=== PATIENT | female | born 1970 | race Caucasian/White ===

== ENCOUNTER 2019-12-20 07:52 | Day surgery (SDC) | payer SELFPAY ==
[2019-12-19 15:51] VITALS: BMI 25.8
--- NOTE | 2019-12-20 08:24 | ANES.PREANE2 ---
Pre-Anesthetic Assessment Pre-Anesthetic Assessment: Height/Weight: Height 1.68 m Weight 72.575 kg Preop Diagnosis: Anemia, occult blood in stool Proposed Procedure: Operation Date: 12/20/19 10:00 Proposed Procedures p EGD/COLON 62064 40960 R19.5(Not Applicable) - Lucho Dc MD s Colonoscopy(Not Applicable) - Lucho Dc MD Last Intake: 03:00 Exam: Pre-Anes Outpt Exam: alert, oriented x 3, clear to auscultation bilaterally and regular rate & rhythm Airway: Submandibular: WNL Cervical ROM: WNL MP: 1 Dentition: Caps Additional comments: left top front, multiple crowned molars CV/HEM: CV/HEM: HTN Comments: rx'd x 2y w blocks/2FOS without angina/DONALD : : UTI Metabolic: Metabolic: DM (rx'd x 10y normally 6-300) Anesthetic Plan: ASA status: 3 Anesthesia: MAC PFSH Anesthesia PFSH: Medical History (Updated 11/22/19 @ 16:55 by Lucho Dc MD) Anemia (Resolved) Depression (Acute) Diabetes (Acute) Herpes genitalia (Acute) Hypertension (Acute) Occult blood in stools (Acute) Surgical History H/O wisdom tooth extraction (Acute) Social History Smoking and tobacco status: never smoked Alcohol intake: never Lives independently: Yes Household members: spouse Marital status: Current occupational status: employed History of recent travel: No Data Anesthesia Cardiac Studies: No Data to Display
[2019-12-20] MEDS: sodium chloride 0.9% 1,000 ML 30 ML (08:50)
[2019-12-20 09:15] LABS: Glucose Point of Care 149 mg/dL (70-110)
[2019-12-20 09:24] VITALS: BP 138/80; PULSE 94; RESP 20; TEMP 37.2; O2SAT 100
[2019-12-20 10:20] VITALS: BP 122/76; PULSE 83; RESP 16; TEMP 36.5; O2SAT 98
[2019-12-20 10:32] VITALS: BP 137/78; PULSE 79; RESP 18; O2SAT 100
--- NOTE | 2019-12-28 14:00 | W.PM.OPSUD ---
Surgery/Procedure H&P Update DATE OF PROCEDURE: December 20, 2019 DATE H&P PERFORMED: 11/22/19 H&P UPDATE INFORMATION: I have reviewed H&P completed within last 30 days, I have examined patient prior to procedure and No changes to prior documentation PREOP DIAGNOSIS: Anemia PLANNED PROCEDURE: Operation Date: 12/20/19 10:00 Proposed Procedures p EGD/COLON 53377 34254 R19.5(Not Applicable) - Lucho Dc MD s Colonoscopy(Not Applicable) - Lucho Dc MD
== END 2019-12-20 10:50 | disposition home or self-care (01) ==
PROVIDERS: Family Provider Family Medicine; PCP Nurse Practitioner Family; Visit Provider Surgery
PROC: 0DJ08ZZ Inspection of Upper Intestinal Tract, Via Natural or Artificial Opening Endoscopic (ICD-10-PCS; CPT 43235; principal; 2019-12-20 10:00)
PROC: 0DJD8ZZ Inspection of Lower Intestinal Tract, Via Natural or Artificial Opening Endoscopic (ICD-10-PCS; CPT 45378; 2019-12-20 10:00)
DX: D50.9 Iron deficiency anemia, unspecified (principal); R19.4 Change in bowel habit; Z80.0 Family history of malignant neoplasm of digestive organs; Z79.4 Long term (current) use of insulin; F32.9 Major depressive disorder, single episode, unspecified; I10 Essential (primary) hypertension; Z82.49 Family history of ischemic heart disease and other diseases of the circulatory system; D12.5 Benign neoplasm of sigmoid colon; K64.8 Other hemorrhoids; E11.9 Type 2 diabetes mellitus without complications
CPT/HCPCS: 12345; 36416; 43235; 45380; 82962; 88305; J2704; J7030

== ENCOUNTER 2021-02-21 09:55 | Outpatient (CLI) | payer BC, SELFPAY ==
--- NOTE | 2021-02-21 10:01 | MM_ITS ---
WS: [id number] BILATERAL DIGITAL SCREENING MAMMOGRAPHY WITH CAD CLINICAL INFORMATION: SCREENING HISTORY: Screening mammogram. No current complaints. COMPARISON: TECHNIQUE: Bilateral CC and MLO views. FINDINGS: The breasts are composed of heterogeneous fibroglandular density tissue, which can limit the detectio n of small underlying mass lesions. No suspicious mass, asymmetry, calcifications, or architectural d istortion. No evidence of malignancy. Punctate and lucent centered calcifications. MM/[id number] IMPRESSION: BI-RADS: 2-Benign FOLLOW UP: 1 Year Follow-up Recommend return to annual screening mammography.
== END 2021-02-21 09:56 | disposition home or self-care (01) ==
LOC: RADSHAW 09:59
PROVIDERS: Family Provider Family Medicine; PCP Internal Medicine; Visit Provider Internal Medicine
DX: Z12.31 Encounter for screening mammogram for malignant neoplasm of breast (principal)
CPT/HCPCS: 77067

== ENCOUNTER 2022-02-24 09:57 | Outpatient (CLI) | payer BC, SELFPAY ==
--- NOTE | 2022-02-24 10:05 | MM_ITS ---
WS: [id number] VIEWS: MLO and CC views both breasts. 3D digital tomosynthesis is also included in this exam. Comparison made with prior exam of 02/21/2021 and 05/26/2018. Findings: There was no sign of mass, architectural distortion or suspicious calcification in either breast. He terogeneously dense MM/[place] [id number] Impression: BI-RADS: 2-Benign FOLLOW-UP: 1 Year Follow-up This mammogram was also analyzed by the Computer Aided Detection System R2 Imag e Summer School Coordinator.
== END 2022-02-24 09:58 | disposition home or self-care (01) ==
LOC: RAD 09:59
PROVIDERS: Family Provider Family Medicine; PCP Internal Medicine; Visit Provider Family Medicine
DX: Z12.31 Encounter for screening mammogram for malignant neoplasm of breast (principal)
CPT/HCPCS: 77063; 77067

== ENCOUNTER 2022-02-24 09:58 | Outpatient (CLI) | payer BC, SELFPAY ==
--- NOTE | 2022-02-24 10:57 | US_ITS ---
WS: [id number] TRANSABDOMINAL PELVIC AND TRANSVAGINAL PELVIC ULTRASOUND HISTORY: MENORRHAGIA COMPARISON: 12/04/2015 Uterus: 10.2 cm x 6.5 cm x 5.4 cm. Enlarged anteverted heterogeneous uterus. Multiple fibroids are id entified. The largest in the anterior myometrium towards the fundus with increased vascularity. This fibroid measures 1.7 x 1.7 x 2.1 cm. Fibroids are better visualized on transabdominal imaging due to uterine enlargement. Endometrium: 0.6 cm. No displacement of the endometrium by the fibroids. Right ovary: 3.1 cm x 3.1 cm x 1.8 cm. The RIGHT ovary is adjacent to the superior uterine fundus and does contain a follicle. Follicle measures 2.1 x 2.3 x 2.4 cm. Left ovary: 4.0 cm x 3.3 cm x 2.2 cm. The ovary is difficult to visualize. There is an ovary towards the cul-de-sac which I believe is the LEFT ovary. Similar appearance and location to the prior examin ation. No free fluid. US/US pelvic with transvaginal IMPRESSION: 1. Enlarged fibroid uterus. Largest fibroid measures 1.7 x 1.7 x 2.1 cm. 2. Endometrium appears normal. No distortion by the fibroids. 3. LEFT ovary difficult to visualize but appears deep within the cul-de-sac.
== END 2022-02-24 09:59 | disposition home or self-care (01) ==
LOC: RAD 09:59
PROVIDERS: Family Provider Family Medicine; PCP Internal Medicine; Visit Provider Family Medicine
DX: N92.0 Excessive and frequent menstruation with regular cycle (principal); D25.9 Leiomyoma of uterus, unspecified
CPT/HCPCS: 76830; 76856

== ENCOUNTER → 2022-03-31 09:24 | Outpatient (BNVA) | payer BC, SELFPAY | PROVIDERS: Family Provider Family Medicine; PCP Internal Medicine; Visit Provider Obstetrics & Gynecology | DX: D64.9 Anemia, unspecified (principal); R10.2 Pelvic and perineal pain; G89.29 Other chronic pain; N92.0 Excessive and frequent menstruation with regular cycle | CPT/HCPCS: 80053; 81000; 81025; 85027; 86850; 86900 ==

== ENCOUNTER 2022-04-02 12:19 | Observation (INO) | payer BC, SELFPAY ==
[2022-04-01 10:46] VITALS: BMI 24.1
--- NOTE | 2022-04-01 11:03 | ANES.PREANE2 ---
Pre-Anesthetic Assessment Height/Weight: Height 1.65 m Weight 65.771 kg Preop Diagnosis: Anemia Operation Date: 04/02/22 07:40 Proposed Procedures p Total vaginal hysterectomy bilateral salpingo-oophorectomy 07100/R10.2/N92.0/D64.9(Not Applicable) - Grupo Canales MD s Salpingo-Oophorectomy (Vaginal)(Bilateral) - Grupo Canales MD Familial anesthetic complications: None Social No alcohol and No tobacco Exam alert, oriented x 3, clear to auscultation bilaterally and regular rate & rhythm Airway Mallampati: Class I Dentition: full Pulmonary None reported CV/HEM Hypertension None reported Hepatic None reported GI None reported Metabolic Diabetes Mellitus [facility] [place] None reported Neuropsych None reported Anesthetic Plan ASA status: 3 Anesthesia: General Risk of > 500 ml blood loss (7ml/kg in children): No Medications/Allergies Home Medications Medication Instructions Recorded Confirmed Last Taken Type acyclovir 200 mg capsule 200 mg PO BID PRN cap 11/22/19 04/01/22 12/19/19 History cyclobenzaprine 10 mg tablet 10 mg PO TID PRN 11/22/19 04/01/22 12/19/19 History losartan 25 mg tablet 50 mg PO DAILY tab 11/22/19 04/01/22 12/19/19 History diphenhydramine 25 2 tab PO BEDTIME 12/20/19 04/01/22 12/19/19 History mg-acetaminophen 500 mg tablet (Tylenol PM Extra Strength) fluoxetine 40 mg capsule 40 mg PO DAILY 12/20/19 04/01/22 12/18/19 History insulin glargine 100 unit/mL 18 unit SUBCUT DAILY 12/20/19 04/01/22 12/20/19 06:15 History subcutaneous solution (Lantus 9 UNITS U-100 Insulin) metformin 1,000 mg tablet 1,000 mg PO BID 12/20/19 04/01/22 12/19/19 19:00 History dulaglutide 3 mg/0.5 mL mg SUBCUT 03/31/22 03/31/22 Unknown History subcutaneous pen injector (Trulicity) Allergies Allergy/AdvReac Type Severity Reaction Status Date / Time Sulfa (Sulfonamide Allergy ALGY-Redness Verified 03/31/22 08:18 Antibiotics) of Skin [facility] Anesthesia Medical History Anemia Depression Diabetes Herpes genitalia Hypertension Occult blood in stools Surgical History H/O esophagogastroduodenoscopy 12/20/2019: Normal H/O wisdom tooth extraction History of colonoscopy with polypectomy 12/20/2019: Found with a sessile polyp sigmoid colon, internal hemorrhoids, follow-up colonoscopy in 5 years Family History Mother Anemia Heart disease Hyperlipidemia Hypertension Colon cancer, Onset Age: 66 Sister Anemia Father CAD (coronary artery disease) Heart disease Grandmother Diabetes paternal Family/Other Diabetes maternal aunt Denies family history of Ovarian cancer Clotting disorder Breast cancer Anesthesia complication Bleeding disorder Uterine cancer Thyroid condition Stroke Social History Smoking and tobacco status: never smoked Alcohol intake: never Lives independently: Yes Household members: spouse Marital status: Current occupational status: employed History of recent travel: No Female Reproductive History Date of last menstrual period: 03/18/22 Data Anesthesia Cardiac Studies: No Data to Display
[2022-04-02] VITALS (20 sets, daily range): BP systolic 110–160; BP diastolic 75–105; PULSE 84–100; RESP 11–20; TEMP 36.4–36.9; O2SAT 94–100; BMI 24.1
[2022-04-02 07:13] LABS: OR HCG Qualitative Urine Negative (Negative)
--- NOTE | 2022-04-02 07:20 | ECG_ITS ---
[facility] Test Date: 2022-04-02 Pat Name: Brunilda Waters Department: Room: 258 Gender: Female Medical Research Scientist: : 1970 Requested By: Hola Christianson Order Number: [id number] Ramsey MD: Anamaria Omer M.D. Measurements Intervals [place] Rate: 88 P: 62 OH: 136 QRS: 22 QRSD: 79 T: 60 QT: 365 QTc: 443 Interpretive Statements SINUS RHYTHM No previous ECG available for comparison Electronically Signed On 04-02-2022 21:56:13 CDT by Anamaria Omer M.D. [email or web address]
[2022-04-02 07:28] LABS: Glucose Point of Care 225 mg/dL (70-110)
--- NOTE | 2022-04-02 07:33 | P.ANESUD_ITS ---
Pre-Anesthetic Update Pre-Anesthetic Assessment: Date of Surgery/Procedure: 04/02/22 Preop Kia gnosis: Pelvic pain, uterine fibroid, menorrhagia, dysmenorrhea Proposed Procedure: Operation Date: 04/02/22 08:15 Proposed Procedures p Total vaginal hysterectomy bilateral salpingo-oophorectomy 69309/R10.2/N92.0/D64.9(Not Applicable) - Grupo Canales MD s Salpingo-Oophorectomy (Vaginal)(Bilateral) - Grupo Canales MD Any changes to Pre-Anesthetic Assessment?: No Exam: Pre-Anes Outpt Exam: alert, oriented x 3, clear to auscultation bilaterally and regular rate & rhythm Cardiac Studies: No Data to Display
[2022-04-02] MEDS: scopolamine 1.5 Patch 1 PATCH TRANSDERMA (07:46)
[2022-04-02] MEDS: sodium chloride 0.9% 1,000 ML 30 ML IV (07:47)
--- NOTE | 2022-04-02 08:00 | W.PM.OPSUD ---
Surgery/Procedure H&P Update DATE OF PROCEDURE: April 02, 2022 DATE H&P PERFORMED: 03/31/22 H&P UPDATE INFORMATION: I have reviewed H&P completed within last 30 days, I have examined patient prior to procedure and No changes to prior documentation PREOP DIAGNOSIS: Pelvic pain, uterine fibroid, menorrhagia, dysmenorrhea PLANNED PROCEDURE: Operation Date: 04/02/22 08:15 Proposed Procedures p Total vaginal hysterectomy bilateral salpingo-oophorectomy 86840/R10.2/N92.0/D64.9(Not Applicable) - Grupo Canales MD s Salpingo-Oophorectomy (Vaginal)(Bilateral) - Grupo Canales MD
[2022-04-02] MEDS: ceFOXitin 2,000 MG in sodium chloride 0.9% (plus) 50 ML 100 MG IV (08:04)
--- NOTE | 2022-04-02 09:25 | P.OP_ITS ---
Operative Report Date of procedure: April 02, 2022 Pre-op diagnosis: Preop Diagnosis Pelvic pain, uterine fibroid, menorrhagia, dysmenorrhea Post-op diagnosis: Same as above Post-op findings: Enlarged uterus Procedure done: Total vaginal hysterectomy with bilateral salpingo-oophorectomy Specimens removed/disposition: Uterus, left and right fallopian tubes and ovaries Surgeon: Grupo Canales MD Estimated blood loss (mL): 50 IV fluids (mL): 1,400 Urine output (mL): 25 Complications: None Findings: Enlarged uterus Procedure: After informed consent and risks, benefits, indications and alternatives reviewed with the patient was taken to the operating room. The patient was placed in dorsal lithotomy position prepped, and draped in the usual sterile fashion. The pre-procedure timeout verifying the correct patient, procedure, site and side, could not requirements was performed and acknowledge by the OR team. A Hector catheter was placed. A Bookwalter vaginal retractor was placed into the vagina in usual manner visualize the cervix. Cervix was grasped with a single tooth tenaculum and circumferentially infiltrated with 2% lidocaine with epinephrine. Then cervix was circumferentially incised with bovie and the bladder was dissected off the pubovesical cervical fascia anteriorly with a sponge stick and Metzenbaum scissors. The anterior peritoneal reflection was identified and the anterior cul-de-sac was entered sharply with Metzenbaum scissors. The same procedure was performed posteriorly and a posterior colpotomy was made through the posterior cul-de-sac space without difficulty and the posterior blade of the Bookwalter vaginal retractor was advanced posteriorly into the cul-de-sac. At this time, the left and right uterosacral ligaments were isolated and ligated with 0 Vicryl. The Enseal device was placed over the uterosacral ligaments on either side and was then used in a serial fashion up through the cardinal ligaments bilaterally cross-clamped, cut, and sealed with the Enseal device. Finally, the uterine arteries were cross-clamped, cut, sealed and ligated with the Enseal device. Hemostasis was assured. The broad ligaments were then serially clamped, sealed and cut with the Enseal device on both sides. Excellent hemostasis was visualized. Both cornua were clamped, sealed and cut with the Enseal device. Then the pedicles were then suture ligated with excellent hemostasis. The uterus was excised and submitted for pathologic evaluation. No other abnormalities were noted in the pelvic cavity. Then the right side Infundibular ligament was identified. The ureter was co nfirmed along the pelvic side wall and peristalsis was noted. The Enseal device was then used to clamp, sealed and transcepted at middistance, again being sure to be clear of the ureter and the fallopian tube and ovary were removed. The same process was then repeated on the left side. Good hemostasis was assure on both sides. The peritoneum was then closed in a pursestring fashion with 0 Vicryl suture. IV methylene blue was given. the vaginal cuff angles were closed with [id number] #0 Vicryl suture on both sides and transfixed with the ipsilateral cardinal and uterosacral ligaments. The remainder of the vaginal cuff was closed with #0 Vicryl in a running locked fashion. At this time, instruments were removed from the vagina at hemostasis assured. Hector catheter was then noted yielding clear chi urine. The patient was taken out of dorsal lithotomy position and awakened from the general anesthesia. The patient tolerated the procedure well and was taken to the PACU recovery room in a stable condition. Sponge, lap, needle and instruments counts were correct x3.
[2022-04-02 10:04] LABS: Glucose Point of Care 236 mg/dL (70-110)
[2022-04-02] MEDS: insulin regular-human 100 units/1 mL 6 UNIT SUBCUT (10:34)
[2022-04-02 11:40] LABS: Glucose Point of Care 236 mg/dL (70-110)
[2022-04-02] MEDS: ketorolac 30 mg/mL INJ IVP (13:37)
[2022-04-02] MEDS: dextrose 5%-lactated ringers 1,000 ML 125 ML IV (13:40)
[2022-04-02] MEDS: HYDROcodone-acetaminophen 5-325 mg Tablet PO ×2 (13:41→20:37)
--- NOTE | 2022-04-02 14:17 | ANE.PACU2 ---
Inpatient post-anesthesia follow up: Airway intact: Yes Vital signs: Temperature 97.9 F Pulse Rate 86 Respiratory Rate 16 Blood Pressure 151/94 Pulse Oximetry 98 Oxygen Delivery Me thod Room Air Oxygen Flow Rate 5 Fraction of Inspir ed Oxygen Hydration adequate: Yes Nausea and vomiting: No Pain level: 4 Mental status: Baseline
[2022-04-02] MEDS: diphenhydrAMINE 50 mg Capsule PO ×2 (16:36→22:51)
[2022-04-02] MEDS: metformin 500 mg Tablet 1000 MG PO (17:53)
[2022-04-02] MEDS: cyclobenzaprine 10 mg Tablet PO (20:09)
[2022-04-02] MEDS: acetaminophen 325 mg Tablet 650 MG PO (22:51)
[2022-04-02] MEDS: NON-FORMULARY MEDICATION (Diphenhydramine-Acetaminophen [Tylenol Pm Extra Strength] 25-500 2 EACH PO (22:54)
[2022-04-03] VITALS: BP 138/78; PULSE 78; RESP 18; TEMP 36.9; O2SAT 100
[2022-04-03 04:00] VITALS: BP 153/8; PULSE 88; RESP 18; TEMP 36.8; O2SAT 98
[2022-04-03] MEDS: HYDROcodone-acetaminophen 5-325 mg Tablet PO ×2 (04:34→13:14)
[2022-04-03 06:47] LABS: Hematocrit 29.3 % (37.0-47.0); Hemoglobin 9.7 g/dL (11.5-15.3); Mean Corpuscular HGB Conc 33.1 g/dL (30.0-36.0); Mean Corpuscular Hemoglobin 28.7 pg (28.0-34.0); Mean Corpuscular Volume 86.7 fl (81-99); Platelet Count 363 10^3/cmm (130-400); Red Blood Count 3.38 10^6/uL (4.1-5.3); Red Cell Distribution Width 12.2 % (12.1-15.1); White Blood Count 8.5 10^3/uL (4.0-10.0)
--- NOTE | 2022-04-03 07:18 | PC.NURSE ---
Removed bateman at 0630 without difficulty 500cc of urine in bag
[2022-04-03 08:00] VITALS: BP 152/80; PULSE 88; RESP 16; TEMP 36.7; O2SAT 97
[2022-04-03] MEDS: insulin glargine 100 units/1 mL 18 UNIT SUBCUT (08:33)
[2022-04-03] MEDS: metformin 500 mg Tablet 1000 MG PO (08:33)
[2022-04-03 08:34] VITALS: BP 152/80
[2022-04-03] MEDS: docusate sodium 100 mg Capsule PO (08:34)
[2022-04-03] MEDS: losartan 50 mg Tablet PO (08:34)
--- NOTE | 2022-04-03 08:59 | PM.OBGYDC ---
Discharge Providers JOGGLE PRESS OPERATOR Date of Admission: 04/02/22 12:19 Date of Discharge: 04/03/22 Attending Provider at Admission: Grupo Canales MD Attending Provider at Discharge: Grupo Canales MD Primary JOGGLE PRESS OPERATOR: Grupo Canales MD Primary Care Provider: Debbie Garcia DO Diagnoses at Discharge Discharge Diagnosis (1) Status post hysterectomy with oophorectomy: Details from hospital stay: Status post total vaginal hysterectomy with bilateral salpingo-oophorectomy postoperative day 1. Afebrile and hemodynamically stable. Status: Acute Reason for Visit Reason for Visit: Brief History: is a 51 year old , with a history of menorrhagia unresponsive to medical management, chronic pelvic pain, uterine fibroid, dysmenorrhea and dyspareunia Hospital Course Hospital Course is a 51 year old admitted for planned total vaginal hysterectomy with bilateral salpingo-oophorectomy. The procedure was performed without complications. Postop overnight observation was uneventful. Ambulating without difficulty, tolerating diet well. She is afebrile and hemodynamically stable postoperative day 1. Pain well under control. Physical Exam Narrative: GA: Alert and oriented ?3. HEENT: WNL. Heart: Regular rate and rhythm. Lungs: Clear to auscultation bilaterally. Abdomen: Bowel sounds present, nontender, LEASE PURCHASE DRIVER: scant bleeding. Extremities: No edema, no cyanosis, no calves pain. Urinary Catheter Management: Hector: Cath Placed During This Visit: yes Urinary Catheter Date of Insertion: 04/02/22 Urinary Catheter Time of Insertion: 08:34 History History History 2 Term 2 Miscarriages/Ectopic 0 0 Living Children 2 Discharge Data Studies Completed and Pending Pending at discharge Category Date Time Status Pathology: Surgical [PTH] Routine Pth 04/02/22 09:31 Received Laboratory Results WBC 8.5 10^3/uL (4.0-10.0) 04/03/22 06:13 RBC 3.38 10^6/uL (4.1-5.3) L 04/03/22 06:13 Hgb 9.7 g/dL (11.5-15.3) L 04/03/22 06:13 Hct 29.3 % (37.0-47.0) L 04/03/22 06:13 MCV 86.7 fl (81-99) 04/03/22 06:13 MCH 28.7 pg (28.0-34.0) 04/03/22 06:13 MCHC 33.1 g/dL (30.0-36.0) 04/03/22 06:13 RDW 12.2 % (12.1-15.1) 04/03/22 06:13 Plt Count 363 10^3/cmm (130-400) 04/03/22 06:13 MPV 10.0 fL (7.4-10.4) 04/03/22 06:13 POC Glucose 236 mg/dL (70-110) H 04/02/22 11:37 Urine HCG, Qual Negative (Negative) 04/02/22 07:12 Blood Type A Positive 04/02/22 07:35 Rho(D) Type Positive 04/02/22 07:35 Antibody Screen Negative 04/02/22 07:35 Vitals Last Vital Signs Temp 98.1 F 04/03/22 08:00 Pulse 88 04/03/22 08:00 Resp 16 04/03/22 08:00 BP 152/80 04/03/22 08:34 Pulse Ox 97 04/03/22 08:00 Discharge Plan Discharge Patient Disposition: Home Condition: Stable Prescriptions: New hydrocodone-acetaminophen 5-325 mg tablet 1 tab PO Q4H PRN (Reason: pain) Qty: 30 0RF docusate sodium [Colace] 100 mg capsule 100 mg PO BID Qty: 60 0RF ferrous sulfate [Iron (ferrous sulfate)] 325 mg (65 mg iron) tablet 325 mg PO BID Qty: 60 0RF ibuprofen 800 mg tablet 800 mg PO TID PRN (Reason: pain) Qty: 60 0RF acetaminophen 325 mg capsule 325 mg PO Q4H PRN (Reason: fever or pain) Qty: 60 0RF Continued cyclobenzaprine 10 mg tablet 10 mg PO TID PRN (Reason: Spasms) 0RF losartan 25 mg tablet 50 mg PO DAILY 0RF acyclovir 200 mg capsule 200 mg PO BID PRN (Reason: Cold Sores) 0RF Trulicity 3 mg/0.5 mL pen injector 3 mg SUBCUT DIRECTED 0RF Rx Instructions: WEEKLY ON THU fluoxetine 40 mg capsule 40 mg PO DAILY 0RF Lantus U-100 Insulin 100 unit/mL Solution 18 unit SUBCUT DAILY 0RF metformin 1,000 mg tablet 1,000 mg PO BID 0RF diphenhydramine-acetaminophen [Tylenol PM Extra Strength] 25-500 mg Tablet 2 tab PO BEDTIME 0RF Discharge Orders: Discharge Order (Routine); Ordered 04/03/22 Ordered By: Grupo Canales Discharge Diet: Usual diet Discharge Activity: Limit activity as instructed Patient Instructions: Opioid Safety, Vaginal Hysterectomy (GEN), Salpingo-Oophorectomy (GEN) Activity Restrictions/Additional Instructions: 1. Please call [facility] on next working day to make your post-operative appointment in 2 weeks. 2. Please stay home until you come back to the clinic on first post-operative check up. 3. Please follow instructions on your medications CAREFULLY. 4. If you have abdominal incision, do not cover it unless dressing is necessary because of drainage. OK to shower, but avoid bath. Leave steri-strips until they fall off. If they are still on one week after surgery, you may remove them. 5. If you had vaginal surgery or vaginal repair, Dr. Canales may instruct you to take SITZ bath. 6. Yellow, blood tinged odorous vaginal discharge is usually normal after hysterectomy or vaginal surgeries. 7. No sexual intercourse, tampons, or douches until you are completely released from the post-operative care. 8. Avoid constipation by eating right and maybe using some Metamucil or Milk of Magnesia. 9. All prescription refills are given during the working hours. Please do no wait till it runs out. Call the clinic at [phone] before your medication runs out. The clinic will get in touch with your doctor to prescribe medications if necessary. 10. Please remain within 40 mile radius from our hospital because emergencies do happen now and then during the post-operative period. 11. If you have stairs at home, take one step at a time slowly and minimize the number of trips. It helps to stay in one floor for the next few days. No lifting except what you can lift by one hand until you are released from the post-operative care. 12. Driving is discouraged until you are well healed. It may be 3-4 weeks before you feel strong enough to drive. You should be able to turn and look through the rear window without pain and you should be able to push the brake pedal very hard without pain before you drive. No fast rules, but SAFETY should be your primary concern. DO NOT drive if you are on sedating medications such as narcotics. 13. Call the clinic (during working hours) to make urgent appointment or go to the Emergency room, if any of the following occurs: i. Vaginal bleeding becomes heavy, more than a period. ii. Incision becomes red and sore, or drains pus. iii. Your temperature is over 100.4 or you have chill. iv. IV site becomes red and swollen (a little ``knot?? is usually OK) v. Persistent nausea and vomiting vi. Persistent constipation or diarrhea vii. Rash or allergic reaction to medications. Discharge Attestations JOGGLE PRESS OPERATOR Time Spent in Discharge Care*: greater than 30 min Coding Level of Care Code Acute Electrician Powerhouse for Felixg Fwd Diagnoses Status post hysterectomy with oophorectomy Z90.710; Z90.721
--- NOTE | 2022-04-03 11:01 | PC.CHAP ---
Pastoral Care Encounter/Spiritual Assessment Type of Contact [] Declined senior bookkeeper visit [] Patient/Family/Request visit [] Outpatient visit [] Follow-up visit [] Physician referral [] Code/Alert [x] Routine visit [] Staff referral [] Actively dying [] Patient sleeping [] Family support [] [] Out of room [] Palliative care [] [x] Receiving care in room [] Pre-surgical visit [] Trauma [] Long length of stay [] ICU visit [] Other: Relational/Emotional Strength [x] Patient feels connected with others/family/visitors/staff [] Distress [] Loneliness/isolation [] Abandonment Spirituality of Patient [x] Person of Bella [] Attends Temple of their Bella [x] Believes in Prayer [] Reads Bible or Zoroastrianism materials [] There are Spiritual issues to be addressed Pegger Dobby Looms Interventions [x] Prayer [x] Active listening [x] Non-anxious presence [x] Spiritual/emotional support [] Crisis/trauma care [x] Spiritual counseling [] Bereavement support [] Provided bereavement packet [] Provided Bible/devotional materials [] Provided toy/stuffed animal, coloring book to patient or family member [] Provided Communion [] Anointing/[place] [] Salvation [x] Completed spiritual assessment [] Other: Impact on Illness or Injury [] Angry [] Fearful [] Anxious [] Often cries [] Exhaustion [] Unable to work [] Unable to attend faith [] Unable to walk/stand [] Unable to read [] Unable to drive [] Unable to eat/drink [] Unable to sleep [] Unable to be with family [] Patient intubated [] Other: Summary feeling ngood has a good attitude going home Time spent with patient 10 mins
[2022-04-03 11:05] VITALS: BP 152/80; PULSE 77; RESP 18; TEMP 37; O2SAT 98
[2022-04-03] MEDS: ibuprofen 800 mg tablet PO (13:14)
== END 2022-04-03 13:45 | disposition home or self-care (01) ==
LOC: MEDSURG 12:19
PROVIDERS: Admitting Provider Obstetrics & Gynecology; PCP Internal Medicine; Visit Provider Obstetrics & Gynecology
PROC: (CPT 58262; principal; 2022-04-02 08:15)
PROC: (CPT 58720; 2022-04-02 08:15)
DX: D25.9 Leiomyoma of uterus, unspecified (principal); N92.0 Excessive and frequent menstruation with regular cycle; N94.6 Dysmenorrhea, unspecified; E11.9 Type 2 diabetes mellitus without complications; F32.9 Major depressive disorder, single episode, unspecified; I10 Essential (primary) hypertension
CPT/HCPCS: 58262; 36415; 36416; 82962; 84703; 85027; 86850; 86900; 88307; 93005; G0378; J0694; J1100; J1170; J1200; J1815 ×2; J1885; J2250; J2370; J2405; J2704; J2710; J3010; J3490; J7030; Q0163; Q9968

== ENCOUNTER → 2023-10-17 10:17 | Outpatient (BNVA) | payer BC, SELFPAY | PROVIDERS: PCP Pediatrics; Visit Provider Nurse Practitioner | DX: R68.89 Other general symptoms and signs (principal); J02.9 Acute pharyngitis, unspecified; J01.90 Acute sinusitis, unspecified | CPT/HCPCS: 87400; 87880 ==

== ENCOUNTER 2023-12-14 11:24 | Outpatient (CLI) | payer BC, SELFPAY ==
--- NOTE | 2023-12-14 11:26 | MM_ITS ---
WS: [id number] BILATERAL SCREENING DIGITAL TOMOSYNTHESIS MAMMOGRAM WITH CAD HISTORY: SCREENING COMPARISON: 02/24/2022 and 02/21/2021 Bilateral CC and MLO views with tomosynthesis and synthetic mammography submitted. Computer aided det ection analyzed. Breast composition: The breasts are heterogeneously dense, which may obscure small masses. No suspici ous masses, microcalcifications or architectural distortion. Numerous bilateral round calcifications within each breast. IMPRESSION: MM/[place] [id number] BI-RADS: 2-Benign FOLLOW UP: 1 Year Follow-up
== END 2023-12-14 11:25 | disposition home or self-care (01) ==
LOC: RAD 11:24
PROVIDERS: PCP Pediatrics; Visit Provider Family Medicine
DX: Z12.31 Encounter for screening mammogram for malignant neoplasm of breast (principal); R92.333 Mammographic heterogeneous density, bilateral breasts; R92.1 Mammographic calcification found on diagnostic imaging of breast
CPT/HCPCS: 77063; 77067

== ENCOUNTER 2024-05-06 14:36 | Emergency (ER) | payer BC, SELFPAY ==
[2024-05-06 15:10] VITALS: BP 155/95; PULSE 95; RESP 14; TEMP 36.7; O2SAT 99
[2024-05-06 15:53] LABS: Basophils # 0.1 10^3/uL (0.0-0.1); Basophils % 0.9 %; Eosinophils # 0.1 10^3/uL (0.0-0.8); Eosinophils % 0.7 %; Hematocrit 37.6 % (36-47); Lymphocytes # 1.8 10^3/uL (0.8-4.8); Lymphocytes % 26.3 %; Mean Corpuscular HGB Conc 34.6 g/dL (30-55); Mean Corpuscular Volume 83.9 fl (85-98); Mean Platelet Volume 9.4 fL (7.4-10.4); Monocytes # 0.3 10^3/uL (0.2-0.9); Monocytes % 4.5 %; Neutrophils # 4.62 10^3/uL (1.8-7.7); Neutrophils % 67.5 %; Nucleated Red Blood Cells % 0 %; Platelet Count 447 10^3/cmm (157-399); Red Blood Count 4.48 10^6/uL (3.85-5.65); Red Cell Distribution Width 12.4 % (12.1-15.1); White Blood Count 6.85 10^3/uL (3.29-11.43)
[2024-05-06 16:00] VITALS: PULSE 90; RESP 15; O2SAT 99
[2024-05-06 16:12] LABS: Alanine Aminotransferase 12 U/L (0-33); Albumin Level 4.7 g/dL (3.5-5.2); Alkaline Phosphatase 49 U/L (35-105); Anion Gap 17.1 (5-19); Aspartate Amino Transferase 17 U/L (0-32); Blood Urea Nitrogen 11 mg/dL (6-20); Calcium 9.4 mg/dL (8.5-10.5); Carbon Dioxide 27 mmol/L (22-29); Chloride 81 mmol/L (98-107); Creatinine Clr Calc Pharmacy 119.6908; Globulin 2.7 g/dL (1.3-4.6); Glomerular Filtration Rate 129.6 mL/min (90-130); Glucose 142 mg/dL (65-115); Osmolality Calculated 256 mOsm/kg (285-295); Potassium 3.1 mmol/L (3.5-5.1); Sodium 122 mmol/L (136-145); Total Bilirubin 0.4 mg/dL (0.15-1.2); Total Protein 7.4 g/dL (6.6-8.7)
--- NOTE | 2024-05-06 16:17 | W.ED.RECABL ---
HPI - Recheck/Abnormal Lab/Rx General: Chief Complaint: Recheck/Abnormal Lab/Rx Stated Complaint: dr grande sent over low sodium Time Seen by Provider: 05/06/24 15:04 History of Present Illness: 53-year-old female who has a history of hyponatremia and presents emergency room at the request of her PCP for worsening low sodium. She says she was told it was 117 on labs or checked 2 days ago. Said she had had some dizziness and nausea and vomiting and weakness. She does feel a bit better today. She says she quit drinking diet Pepsi recently which did have a lot of sodium in it. She says she has been told that she needs to have more sodium intake. She was also changed from losartan to hydrochlorothiazide recently for her blood pressure. Currently no altered mental status. No focal motor deficits. No increased work of breathing. No chest pain. No abdominal pain. Review of Systems Narrative: Constitutional symptoms: Negative except as documented in HPI. Skin symptoms: Negative except as documented in HPI. Eye symptoms: Negative except as documented in HPI. ENMT symptoms: Negative except as documented in HPI. Respiratory symptoms: Negative except as documented in HPI. Cardiovascular symptoms: Negative except as documented in HPI. Gastrointestinal symptoms: Negative except as documented in HPI. Genitourinary symptoms: Negative except as documented in HPI. Musculoskeletal symptoms: Negative except as documented in HPI. Neurologic symptoms: Negative except as documented in HPI. Psychiatric symptoms: Negative except as documented in HPI. Endocrine symptoms: Negative except as documented in HPI. PFS ED PFSH: Medical History Anemia Hypertension Diabetes Depression Herpes genitalia Occult blood in stools Surgical History History of colonoscopy with polypectomy 12/20/2019: Found with a sessile polyp sigmoid colon, internal hemorrhoids, follow-up colonoscopy in 5 years H/O esophagogastroduodenoscopy 12/20/2019: Normal H/O wisdom tooth extraction Family History Mother Anemia Heart disease Hyperlipidemia Hypertension Colon cancer, Onset Age: 66 Sister Anemia Father CAD (coronary artery disease) Heart disease Grandmother Diabetes paternal Family/Other Diabetes maternal aunt Denies family history of Ovarian cancer Clotting disorder Breast cancer Anesthesia complication Bleeding disorder Uterine cancer Thyroid disease Stroke Social History Substance/Drug Use: never Physical Exam Narrative: EXAM NARRATIVE: General: Alert, no acute distress. Skin: Warm, dry. Head: Normocephalic, atraumatic. Neck: Supple, trachea midline. Eye: Extraocular movements are intact. Ears, nose, mouth and throat: mucosa moist. Cardiovascular: Regular, Normal peripheral perfusion. Respiratory: Lungs are clear to auscultation, respirations are non-labored, breath sounds are equal, Symmetrical chest wall expansion. Gastrointestinal: Soft, Nontender, Non distended Musculoskeletal: Normal ROM, no deformity. Neurological: Alert and oriented, No focal neurological deficit observed. Psychiatric: Cooperative, appropriate mood & affect. Course Vital Signs: Vital signs: Vital Signs Temperature 98.0 F 05/06/24 15:10 Pulse Rate 76 05/06/24 17:15 Respiratory Rate 14 05/06/24 17:15 Blood Pressure 150/94 05/06/24 17:15 Pulse Oximetry 100 05/06/24 17:15 Oxygen Delivery Me thod Room Air 05/06/24 15:10 MDM - Recheck/Abnormal Lab/Rx Medical Decision Making Medical decision making: Differential diagnosis including but not limited to and based on the above HPI, review of systems and physical exam: Patient presents with concern for hyponatremia. So BMP was ordered. Also CBC. Also giving her complaint of a cough that caused the change of her meds of ordered chest x-ray to rule out any kind of tumor particular Pancoast tumor that might cause hyponatremia. Orders placed to evaluate differential diagnosis based on the above differential, HPI and physical exam Lab Review: Laboratory results were reviewed and interpreted by myself the emergency room physician. Sodium is 122. This is up. She is often around 130. I will give her saline bolus and have her stop her hydrochlorothiazide. I think this is likely what exacerbated her problem this time. She has been on it for about a month Chest x-ray: No acute process. No infiltrate. No pneumothorax. This was reviewed and interpreted by myself the ER physician. I reviewed the patient's medical record. Reexamination: Patient remained stable. No altered mental status. No increased work of breathing. She had no nausea or vomiting. Her blood pressure has been fairly normal and her heart rate has been as well. Assessment and plan: Hyponatremia -Normal saline bolus and holding hydrochlorothiazide. - Discharged home - Discussed findings and plan with patient. Answered any questions. - All laboratory values were reviewed and interpreted personally by myself, the ER physician - All imaging was reviewed and interpreted personally by myself, the ER physician. - Evaluation and treatment of this problem were appropriate in the emergency setting Lab Data 05/06/24 15:33 05/06/24 15:33 Radiology Impressions Chest X-Ray 05/06/24 17:19 IMPRESSION: No acute findings. Laboratory Results WBC 6.85 10^3/uL (3.29-11.43) 05/06/24 15:33 RBC 4.48 10^6/uL (3.85-5.65) 05/06/24 15:33 Hgb 13.00 g/dL (11.27-16.99) 05/06/24 15:33 Hct 37.6 % (36-47) 05/06/24 15:33 MCV 83.9 fl (85-98) L 05/06/24 15:33 MCH 29.0 pg (27-33) 05/06/24 15:33 MCHC 34.6 g/dL (30-55) 05/06/24 15:33 RDW 12.4 % (12.1-15.1) 05/06/24 15:33 Plt Count 447 10^3/cmm (157-399) H 05/06/24 15:33 MPV 9.4 fL (7.4-10.4) 05/06/24 15:33 Neut % (Auto) 67.5 % 05/06/24 15:33 Lymph % (Auto) 26.3 % 05/06/24 15:33 [place] % (Auto) 4.5 % 05/06/24 15:33 Eos % (Auto) 0.7 % 05/06/24 15:33 Baso % (Auto) 0.9 % 05/06/24 15:33 Neut # (Auto) 4.62 10^3/uL (1.8-7.7) 05/06/24 15:33 Lymph # (Auto) 1.8 10^3/uL (0.8-4.8) 05/06/24 15:33 [place] # (Auto) 0.3 10^3/uL (0.2-0.9) 05/06/24 15:33 Eos # (Auto) 0.1 10^3/uL (0.0-0.8) 05/06/24 15:33 Baso # (Auto) 0.1 10^3/uL (0.0-0.1) 05/06/24 15:33 Nucleated RBC % (auto) 0 % 05/06/24 15:33 Nucleated RBCs # 0.0 /100WBC 05/06/24 15:33 Sodium 122 mmol/L (136-145) L 05/06/24 15:33 Potassium 3.1 mmol/L (3.5-5.1) L 05/06/24 15:33 Chloride 81 mmol/L (98-107) L 05/06/24 15:33 Carbon Dioxide 27 mmol/L (22-29) 05/06/24 15:33 Anion Gap 17.1 (5-19) 05/06/24 15:33 BUN 11 mg/dL (6-20) 05/06/24 15:33 Creatinine 0.5 mg/dL (0.5-0.9) 05/06/24 15:33 GFR Calculation 129.6 mL/min (90-130) 05/06/24 15:33 Glucose 142 mg/dL (65-115) H 05/06/24 15:33 Calculated Osmolality 256 mOsm/kg (285-295) L 05/06/24 15:33 Calcium 9.4 mg/dL (8.5-10.5) 05/06/24 15:33 Total Bilirubin 0.4 mg/dL (0.15-1.2) 05/06/24 15:33 AST 17 U/L (0-32) 05/06/24 15:33 ALT 12 U/L (0-33) 05/06/24 15:33 Alkaline Phosphatase 49 U/L (35-105) 05/06/24 15:33 Total Protein 7.4 g/dL (6.6-8.7) 05/06/24 15:33 Albumin 4.7 g/dL (3.5-5.2) 05/06/24 15:33 Globulin 2.7 g/dL (1.3-4.6) 05/06/24 15:33 Urine Color Yellow (Yellow) 05/06/24 16:25 Urine Appearance Clear (CLEAR) 05/06/24 16:25 Urine pH 7 (5-7) 05/06/24 16:25 Ur Specific [place] 1.005 (1.005-1.030) 05/06/24 16:25 Urine Protein Neg (Negative) 05/06/24 16:25 Urine Glucose (UA) Norm (Normal) 05/06/24 16:25 Urine Ketones 1+ (Negative) H 05/06/24 16:25 Urine Blood Neg (Negative) 05/06/24 16:25 Urine Nitrate Negative (Negative) 05/06/24 16:25 Urine Bilirubin Neg (Negative) 05/06/24 16:25 Urine Urobilinogen Norm mg/dL (Negative) 05/06/24 16:25 Ur Leukocyte Esterase Negative (Negative) 05/06/24 16:25 Urine RBC None /hpf (0-2) 05/06/24 16:25 Urine WBC None /hpf (0-5) 05/06/24 16:25 Ur Squamous Epith Cells 0-4 /hpf (0-5) H 05/06/24 16:25 Amorphous Sediment Not Reportable 05/06/24 16:25 Urine Bacteria None /hpf (NONE) 05/06/24 16:25 All radiology interpretation(s) finalized by discharge Discharge Plan Discharge Patient Disposition: Home Clinical Impression: Hyponatremia Condition: Stable Prescriptions: No Action cyclobenzaprine 10 mg tablet 10 mg PO TID PRN (Reason: Spasms) losartan 25 mg tablet 50 mg PO DAILY acyclovir 200 mg capsule 200 mg PO BID PRN (Reason: Cold Sores) estradiol 0.01 % (0.1 mg/gram) cream 1 appful vaginal .see notes Qty: 42.5 1RF Rx Instructions: 1 applicator per vagina at night for 1 month then twice a week prednisone 20 mg tablet 40 mg PO DAILY Qty: 10 0RF Trulicity 3 mg/0.5 mL pen injector 3 mg SUBCUT DIRECTED Rx Instructions: WEEKLY ON THU Colace 100 mg capsule 100 mg PO DAILY estradiol 1 mg tablet 1 mg PO DAILY 30 Days Qty: 30 0RF Rx Instructions: increased to 1 mg on 06/16/2022 fluoxetine 40 mg capsule 40 mg PO DAILY metformin 1,000 mg tablet 1,000 mg PO BID diphenhydramine-acetaminophen [Tylenol PM Extra Strength] 25-500 mg Tablet 2 tab PO BEDTIME Lantus U-100 Insulin 100 unit/mL solution 14 unit SUBCUT DAILY acetaminophen 325 mg capsule 325 mg PO Q4H PRN (Reason: fever or pain) Qty: 60 0RF ibuprofen 800 mg tablet 800 mg PO TID PRN (Reason: pain) Qty: 60 0RF Discharge Orders: Discharge ED (Routine); Ordered 05/06/24 Ordered By: Becki Worthy Referrals: Elliot HIGH,Alia Green MD [Primary Care Provider] - 4-7 days (Please hold your hydrochlorothiazide until further instructed by your primary provider.) Discharge Diet: Usual diet Discharge Activity: Increase activity as tolerated Patient Instructions: Hyponatremia (ED) Activity Restrictions/Additional Instructions: Thank you for choosing [facility] for your healthcare needs today. Please realize this is an emergency room and that we are providing you with a medical screening exam and this may not be complete and all inclusive of all the testing and or work up that you may need to determine your ailment or severity of your illness. You have been screened and evaluated and felt safe for discharge. Health conditions do change or evolve sometimes and as such it is important that you follow up with your Primary Doctor to be re checked, 3-5 days is a general good time frame for follow up. You are always welcome to return to the ED for re assessment if your symptoms are worsening or you have new concerns Coding Level of Care Code ED [employer] for Orville Costa
[2024-05-06 16:30] VITALS: PULSE 79; RESP 15; O2SAT 98
[2024-05-06] MEDS: sodium chloride 0.9% 1,000 ML 999 ML IV (16:39)
[2024-05-06 16:45] VITALS: BP 146/87; PULSE 84; RESP 15; O2SAT 99
[2024-05-06 16:56] LABS: Bilirubin Urine Neg (Negative); Blood Urine Neg (Negative); Glucose Urine UA Norm (Normal); Ketones Urine 1+ (Negative); Leukocyte Esterase Urine Negative (Negative); Nitrate Urine Negative (Negative); Protein Urine Neg (Negative); Specific Gravity, Urine 1.005 (1.005-1.030); Urine Appearance Clear (CLEAR); Urine Color Yellow (Yellow); Urobilinogen Urine Norm (Negative); pH Urine 7 (5-7)
[2024-05-06 16:58] LABS: Add Urine Culture? No; Squamous Epithelial Cell Urine 0-4 /hpf (0-5)
[2024-05-06 17:00] VITALS: BP 146/87; PULSE 83; RESP 16; O2SAT 99
[2024-05-06 17:15] VITALS: BP 150/94; PULSE 76; RESP 14; O2SAT 100
--- NOTE | 2024-05-06 17:19 | XRR_ITS ---
PROCEDURE INFORMATION: Exam: XR Chest Exam date and time: 05/06/2024 5:23 PM Age: 53 years old Clinical indication: Cough TECHNIQUE: Imaging protocol: Radiologic exam of the chest. Views: 1 view. COMPARISON: No relevant prior studies available. FINDINGS: Lungs: Unremarkable. No consolidation. Pleural spaces: Unremarkable. No pleural effusion. No pneumothorax. Heart/Mediastinum: Unremarkable. No cardiomegaly. Bones/joints: Unremarkable. XR/XR chest 1V portable [id number] IMPRESSION: No acute findings.
== END 2024-05-06 18:19 | disposition home or self-care (01) ==
PROVIDERS: Emergency Provider Emergency Medicine; PCP Pediatrics
DX: E87.1 Hypo-osmolality and hyponatremia (principal); Z79.85 Long-term (current) use of injectable non-insulin antidiabetic drugs; Z79.84 Long term (current) use of oral hypoglycemic drugs; Z79.4 Long term (current) use of insulin; I10 Essential (primary) hypertension; E11.9 Type 2 diabetes mellitus without complications
CPT/HCPCS: 36415; 71045; 80053; 81001; 85025; 96360; 96361; 99284; J7030

== ENCOUNTER 2025-08-28 13:56 | Outpatient (CLI) | payer BC, SELFPAY ==
--- NOTE | 2025-08-28 14:05 | MM_ITS ---
WS: [id number] BILATERAL 3D TOMOSYNTHESIS DIGITAL SCREENING MAMMOGRAPHY WITH CAD CLINICAL INFORMATION: SCREENING FOR MALIGNANT NEOPLASM OF BREAST HISTORY: Screening mammogram. No current complaints. COMPARISON: 2023 TECHNIQUE: Bilateral CC and MLO views. FINDINGS: The breasts are composed of heterogeneous fibroglandular density tissue, which can limit the detection of small underlying mass lesions. No suspicious mass, asymmetry, calcifications, or architectural distortion. No evidence of malignancy. Punctate and lucent centered calcifications. MM/MM [facility] tomosynthesis [id number] IMPRESSION: DENSITY: The breasts are heterogeneously dense, which may obscure small masses. BI-RADS: 2 - Benign FOLLOW UP: 1 Year Follow-up Recommend return to annual screening mammography.
--- NOTE | 2025-08-28 14:10 | XR_ITS ---
WS: [id number] DEXA (DUAL ENERGY X-RAY ABSORPTIOMETRY) Bone mineral density was performed using a [employer] machine. HISTORY: POSTMENOPAUSAL STATUS COMPARISON: None available. Lumbar spine BMD (L1-L4): 1.070 g/cm2 T score: -0.9 Z score: 0.2 Total hip BMD: Left: 0.754 g/cm2. T score: -2.0 Z score: -1.1 Right: 0.810 g/cm2. T score: -1.6 Z score: -0.7 10 year probability of a major osteoporotic fracture is 5.7%. XR/XR DEXA axial skeleton* [id number] IMPRESSION: OSTEOPENIA based upon the WHO classification for females.
== END 2025-08-28 13:57 | disposition home or self-care (01) ==
PROVIDERS: PCP Family Medicine; Visit Provider Family Medicine
DX: Z12.31 Encounter for screening mammogram for malignant neoplasm of breast (principal); Z13.820 Encounter for screening for osteoporosis; R92.323 Mammographic fibroglandular density, bilateral breasts; R92.333 Mammographic heterogeneous density, bilateral breasts; R92.1 Mammographic calcification found on diagnostic imaging of breast; M85.88 Other specified disorders of bone density and structure, other site
CPT/HCPCS: 77063; 77067; 77080